=== PATIENT | female | born 1960 | race Caucasian/White ===

== ENCOUNTER 2025-02-15 17:37 | Emergency (ER) | payer BC ==
[~2025-02-15] VITALS: Ht 175.3 cm; Wt 113.0 kg
[2025-02-15] MEDS ORDERED: CALCIUM500 MG PO (17:50)
[2025-02-15] MEDS ORDERED: B-COMPLEX TR 11 EACH PO (17:50)
[2025-02-15] MEDS ORDERED: BARIATRIC MULT1 EACH PO (17:51)
[2025-02-15 18:07] LABS: BASOPHILS 0.8 % (0.1-1.2); EOSINOPHILS 2.8 % (0.7-5.8); LYMPHOCYTES 34.5 % (19.3-51.7); MCH 29.6 PG (25.6-32.2); MCHC 33.1 g/dL (32.2-35.5); MCV 89.4 fL (79.4-94.8); MONOCYTES 7.4 % (4.7-12.5); NEUTROPHILS 54.2 % (34.0-71.1); RBC 4.16 M/uL (3.93-5.22)
[2025-02-15 18:30] LABS: ALT (SGPT) 135.0 U/L (14-59); AST (SGOT) 180.0 U/L (15-37); GLOMERULAR FILTRATION RATE,EST 87.0 mL/min (>60); PROTEIN, TOTAL 6.8 g/dL (6.4-8.2); UREA NITROGEN 25.0 mg/dL (7-18)
[2025-02-15] MEDS ORDERED: METOCLOPRAMIDE HCL 10 MG/2 ML SDV IV ONE (20:45)
[2025-02-15] MEDS ORDERED: HYDROCODON-ACE1 EA10 PO (23:06)
[2025-02-15] MEDS ORDERED: ONDANSETRON ODT8 MG PO (23:06)
[2025-02-15] MEDS ORDERED: HYDROCODONE BIT/ACETAMINOPHEN 5/325 MG 1 TAB HOME.PACK PO ONE (23:15)
[2025-02-15] MEDS ORDERED: ONDANSETRON 4 MG HOME.PACK SL ONE (23:15)
== END 2025-02-15 23:27 | disposition home or self-care (01) ==
LOC: ED 17:37
DX: R10.10 Upper abdominal pain, unspecified (principal); Z79.899 Other long term (current) drug therapy
CPT/HCPCS: 36415; 74177; 80053; 83690; 85025; 96374; 99284-25; A9270; J2765; Q9967